=== PATIENT | female | born 1975 | race African-American/Black ===

== ENCOUNTER 2017-12-30 02:53 | Inpatient (IN) | payer OTHER ==
[2017-12-30] VITALS (12 sets, daily range): BP systolic 96–132; BP diastolic 51–76
[~2017-12-30] VITALS: Ht 165.1 cm; Wt 84.8 kg
[~2017-12-30 02:53] MED LIST: AMOX TR-K CLV 875-12; ATARAX,VISTARIL50 MG PO; CHERATUSSIN AC473 ML; FLEXERIL10 MG PO; HYDROCODONE-AP1 EAC8 PO; METAXALONE800 MG PO; MOTRIN600 MG PO; PEPCID40 MG PO; PREDNISONE20 MG PO; PRENATAL TABLE1 EACH PO
[2017-12-30] MEDS ORDERED: FLAGYL500 MG PO (03:06)
[2017-12-30 03:21] LABS: BASOPHIL (%) 0.2 % (0-1); EOSINOPHIL (%) 1.9 % (0-5); EOSINOPHIL COUNT 0.2 K/uL (0-0.3); HEMATOCRIT 35.9 % (36.0-46.0); HEMOGLOBIN 12.2 G/DL (11.9-15.5); LYMPHOCYTE (%) 21.7 % (15-42); LYMPHOCYTE COUNT 1.9 K/uL (1.0-2.8); MCH 26.8 PG (29.0-34.0); MCV 78.7 FL (83-99); MONOCYTE (%) 10.1 % (3-12); MONOCYTE COUNT 0.9 K/uL (0-0.8); NEUTROPHIL (%) 65.1 % (45-76); NEUTROPHIL COUNT 5.6 K/uL (1.8-6.4); PLATELET COUNT 315 K/uL (156-360); RBC DIS.WIDTH-CV 15.8 % (11.8-14.6); RBC DIS.WIDTH-SD 45.1 % (39-53); RED BLOOD COUNT 4.56 M/uL (3.80-5.20); WHITE BLOOD COUNT 8.6 K/uL (4.1-10.2)
[2017-12-30] MEDS ORDERED: MOTRIN800 MG PO (05:42)
[2017-12-30] MEDS ORDERED: PERCOCET 5/31 TABLET PO (05:42)
[2017-12-30 06:34] LABS: AMPHETAMINE NEGATIVE (500 ng/mL); BARBITURATES NEGATIVE (200 ng/mL); BENZODIAZEPINES NEGATIVE (150 ng/mL); BUPRENORPHINE NEGATIVE (10 ng/mL); COCAINE NEGATIVE (150 ng/mL); METHADONE NEGATIVE (200 ng/mL); METHAMPHETAMINE NEGATIVE (500 ng/mL); OPIATES (MORPHINE) NEGATIVE (100 ng/mL); OXYCODONE NEGATIVE (100 ng/mL); PHENCYCLIDINE NEGATIVE (25 ng/mL); PROPOXYPHENE NEGATIVE (300 ng/mL); THC CANNABINOIDS NEGATIVE (50 ng/mL); TRICYCLIC ANTIDEPRESSANTS NEGATIVE (300 ng/mL)
[2017-12-31 03:00] VITALS: BP 101/59
[2017-12-31 06:37] LABS: BASOPHIL (%) 0.2 % (0-1); EOSINOPHIL (%) 0.3 % (0-5); EOSINOPHIL COUNT 0.1 K/uL (0-0.3); HEMATOCRIT 31.5 % (36.0-46.0); HEMOGLOBIN 10.4 G/DL (11.9-15.5); IMMATURE GRANULOCYTE (%) 0.9 % (0.0-0.7); LYMPHOCYTE (%) 8.9 % (15-42); LYMPHOCYTE COUNT 1.6 K/uL (1.0-2.8); MCH 26.3 PG (29.0-34.0); MCV 79.7 FL (83-99); MONOCYTE (%) 8.4 % (3-12); MONOCYTE COUNT 1.5 K/uL (0-0.8); NEUTROPHIL (%) 81.3 % (45-76); NEUTROPHIL COUNT 14.7 K/uL (1.8-6.4); PLATELET COUNT 300 K/uL (156-360); RBC DIS.WIDTH-CV 15.9 % (11.8-14.6); RBC DIS.WIDTH-SD 45.7 % (39-53); RED BLOOD COUNT 3.95 M/uL (3.80-5.20); WHITE BLOOD COUNT 18.1 K/uL (4.1-10.2)
[2017-12-31 07:13] VITALS: BP 86/54
[2017-12-31 10:50] VITALS: BP 101/55
[2017-12-31 15:40] VITALS: BP 100/65
[2017-12-31 19:26] VITALS: BP 105/62
[2017-12-31 22:16] VITALS: BP 97/63
[2018-01-01 03:02] VITALS: BP 98/57
[2018-01-01 06:59] VITALS: BP 104/55
[2018-01-01 11:14] VITALS: BP 106/63
[2018-01-01 14:41] VITALS: BP 102/59
[2018-01-02] MEDS ORDERED: PUMP IN STYLE1 EACH MC (10:30)
== END 2018-01-02 11:25 | disposition home or self-care (01) | DRG 766 ==
LOC: LDRP-OP 02:53 → 2WEST 02:54
PROVIDERS: Advanced Practice Midwife; Obstetrics & Gynecology
PROC: 10D00Z1 Extraction of Products of Conception, Low, Open Approach (ICD-10-PCS; principal; 2017-12-30)
DX: O32.1XX0 Maternal care for breech presentation, not applicable or unspecified (principal); O75.82 Onset (spontaneous) of labor after 37 completed weeks of gestation but before 39 completed weeks gestation, with delivery by (planned) cesarean section; Z3A.38 38 weeks gestation of pregnancy; Z37.0 Single live birth
CPT/HCPCS: 82247; 82248; 82261 90; 82776 90; 84030 90; 84510 90; 85025; 86850; 86870; 86900; 86901; 86920; J0690; J1170; J2274; J2405; J2765; J3010; J7120